=== PATIENT | male | born 1955 | race Caucasian/White ===

== ENCOUNTER 2017-09-10 19:36 | Emergency (ER) | payer MEDICARE, OTHER, MEDICAID ==
[2017-09-10] MEDS: LORAZEPAM 1 MG TAB PO (23:53)
[2017-09-10] MEDS: KETOROLAC 60 MG INJ IM (23:53)
[2017-09-10] MEDS: DEXAMETHASONE 10 MG/ML 1 ML INJ IM (23:53)
== END 2017-09-11 00:34 | disposition home or self-care (01) ==
LOC: FTE 19:36
DX: M54.42 Lumbago with sciatica, left side (principal); E11.9 Type 2 diabetes mellitus without complications; Z79.84 Long term (current) use of oral hypoglycemic drugs
CPT/HCPCS: 96372; 99284-25